=== PATIENT | male | born 1965 | race Asian ===

== ENCOUNTER → 2021-02-26 | Outpatient (CLI) | payer OTHER ==
--- NOTE | 2021-02-26 16:59 | RAD ---
Lumbar spine 3 views: Reason for exam: Low back pain. The vertebral bodies of the lumbar spine are normally aligned anteriorly and posteriorly. No acute fr acture or subluxation is evident. Intact. There are some mild hypertrophic changes off the anterior e ndplates at the L4 and L5 vertebral bodies. The intervertebral disc spaces appear to be fairly well-m aintained. No abnormality seen sacrum or sacroiliac joints. IMPRESSION: Mild degenerative changes in lower lumbar spine. No acute abnormality seen in the lumbar spine. Electronically signed by: Angélica Ware MD (02/26/2021 4:57 PM) [email or web address]
== END ==
LOC: RAD 10:10
PROVIDERS: ATTEND Anesthesiology Pain Medicine
DX: Z02.71 Encounter for disability determination (principal); M47.816 Spondylosis without myelopathy or radiculopathy, lumbar region
CPT/HCPCS: 72100